=== PATIENT | female | born 2000 | race Caucasian/White ===

== ENCOUNTER 2024-09-07 08:18 | Outpatient (CLI) | payer BC, SELFPAY | END 2024-09-07 08:19 | disposition home or self-care (01) | PROVIDERS: PCP Physician Assistant Medical; Visit Provider Physician Assistant Medical | DX: Z13.220 Encounter for screening for lipoid disorders (principal); Z13.1 Encounter for screening for diabetes mellitus; Z13.29 Encounter for screening for other suspected endocrine disorder | CPT/HCPCS: 80061; 82947; 84443 ==

== ENCOUNTER 2025-06-21 14:33 | Outpatient (CLI) | payer BC, SELFPAY | END 2025-06-21 14:34 | disposition home or self-care (01) | PROVIDERS: PCP Physician Assistant Medical; Visit Provider Physician Assistant Medical | DX: N92.6 Irregular menstruation, unspecified (principal); F41.9 Anxiety disorder, unspecified; Z78.9 Other specified health status | CPT/HCPCS: 83001; 83002; 83498; 84146; 84270; 84402; 84403 ==